=== PATIENT | male | born 1950 | race Caucasian/White ===

== ENCOUNTER 2016-08-03 07:45 | Day surgery (SDC) | payer MEDICARE ==
[2016-08-03] MEDS ORDERED: MIDAZOLAM HCL 2MG/2ML VIAL IV ONE (14:00)
[2016-08-03] MEDS ORDERED: PROPOFOL 10 MG/ML VIAL IV ONE (14:00)
[2016-08-03] MEDS ORDERED: LIDOCAINE 2% MDV (20MG/ML) 20ML VIAL IV ONE (14:00)
--- NOTE | 2016-08-07 15:04 | Operative Note ---
DATE OF SURGERY: 08/03/2016. REFERRING PHYSICIAN: Odessa Browning D.O. PROCEDURE: Colonoscopy to the cecum with biopsy and cold-snare polypectomy. INDICATION: A history of polyps in the past. The patient returns at this time for surveillance. ANESTHESIA: Intravenous sedation was administered by the Department of Anesthesiology and included Diprivan titrated to effect. PROCEDURE: Following informed consent from this alert individual, including a discussion of the risks and benefits of the procedure and an opportunity for the patient to ask questions, the patient was in the left lateral decubitus position. A digital rectal examination was performed. No abnormalities were detected. Following this, the Olympus CF-180 video colonoscope was inserted into the rectum without resistance. The rectal mucosa had a normal appearance with normal folds and distensibility. The sigmoid colon had scattered diverticula noted. The colonoscope was advanced up through the bowel to the level of the cecum without much difficulty. Throughout the bowel, the mucosa appeared normal, folds were normal, and the bowel was fairly distensible. The cecum was well defined by noting the appendiceal orifice and ileocecal valve. From the base of the cecum, the colonoscope was then withdrawn. The colon preparation was good. In the distal ascending colon there was a diminutive 3.0 mm polyp noted. This was removed with biopsy forceps. In the proximal transverse colon there was a 4.0 mm polyp noted which was removed with a combination of cold-snare polypectomy and biopsy forceps. The colonoscope was then further withdrawn back through the transverse colon, descending colon, to the sigmoid colon where scattered diverticula were noted. The endoscope was then further withdrawn back through the rectum where two diminutive, hyperplastic-appearing polyps were noted. Each was removed with biopsy forceps. Retroflexion in the rectum was endoscopically unremarkable. The instrument was straightened and withdrawn. The patient tolerated the procedure well and was returned to the recovery area in stable condition. IMPRESSION: 1. A 3.0 mm ascending colon polyp removed with biopsy forceps. 2. A 4.0 mm proximal transverse colon polyp removed with a combination of cold- snare polypectomy and biopsy forceps. 3. Two diminutive rectal polyps removed with biopsy forceps. 4. Sigmoid diverticulosis. RECOMMENDATIONS: Further recommendations will be forthcoming pending the results of the pathology obtained today. The patient will be following up with Dr. Browning. FRANCISCA ANDERSON D.O. Date Time JOB NUMBER: [id number] cc: Armani Rebolledo
== END 2016-08-03 10:00 | disposition home or self-care (01) ==
LOC: HOP 07:45
PROVIDERS: ATTEND Internal Medicine Gastroenterology
DX: Z09 Encounter for follow-up examination after completed treatment for conditions other than malignant neoplasm (principal); K63.5 Polyp of colon; K62.1 Rectal polyp; K57.30 Diverticulosis of large intestine without perforation or abscess without bleeding; E78.00 Pure hypercholesterolemia, unspecified; I10 Essential (primary) hypertension